=== PATIENT | female | born 1950 | race Caucasian/White ===

== ENCOUNTER 2016-03-28 16:07 | Inpatient (IN) | payer OTHER, MEDICARE ==
[~2016-03-28] VITALS: Ht 154.9 cm; Wt 64.6 kg
[~2016-03-28 16:07] MED LIST: ADVA250A INH; ALBU0.08 NEB; BLAC540C2 PO; CALC600T25; CHOL1TAB42; FOSA70TA PO; GABA100C4 PO; LOVA10TA PO; MONT10TA2 PO; PLAQ200T PO; VENTAER INH
[2016-03-31] MEDS ORDERED: FLUT1SPR9 EACH NARE (15:30)
[2016-04-03] MEDS ORDERED: HYDR-3288 PO (07:24)
[2016-04-03] MEDS ORDERED: ENOX30P SQ (07:25)
[2016-04-03] MEDS ORDERED: SODIUM CHLORIDE 0.9% FLUSH 5 ML FLUSH IVF PRN (07:30)
[2016-04-03] MEDS ORDERED: ACETAMINOPHEN/HYDROcodone 325 MG/7.5 MG TAB PO PRN (07:30)
[2016-04-03] MEDS ORDERED: NALOXONE HCL 0.4 MG/ML AMP IV PRN (07:30)
[2016-04-03] MEDS ORDERED: MAGNESIUM HYDROXIDE SUSP 30 ML CUP PO PRN ×2 (07:30→15:15)
[2016-04-03] MEDS ORDERED: MORPHINE SULFATE 4 MG/ML INJ IV PUSH PRN (07:30)
[2016-04-03] MEDS ORDERED: ZOLPIDEM TARTRATE 5 MG TAB PO PRN (07:30)
[2016-04-03] MEDS ORDERED: BISACODYL 10 MG SUPP PR PRN ×2 (07:30→15:15)
[2016-04-03] MEDS ORDERED: diphenhydrAMINE HCL 50 MG/ML VIAL IV PRN (07:30)
[2016-04-03] MEDS ORDERED: ONDANSETRON HCL 4 MG/2 ML VIAL IVP PRN (07:30)
[2016-04-03] MEDS ORDERED: ALUMINUM/MAGNESIUM/SIMETH 30 ML CUP PO PRN (07:30)
[2016-04-03] MEDS: LACTATED RINGER'S 1000 ML IV SCH (07:30)
[2016-04-03] MEDS ORDERED: Post-op Orders (for Pharmacy) MISC XX ONE (07:30)
[2016-04-03 07:33] VITALS: BP 139/66; PULSE 94; RESP 18; TEMP 98.6; O2SAT 96
[2016-04-03] MEDS: TRANEXAMIC ACID IV SCH ×2 (07:45→10:22)
[2016-04-03] MEDS ORDERED: METOPROLOL TARTRATE 25 MG TAB PO PRN (07:45)
[2016-04-03] MEDS: SODIUM CHLORID 0.9% 500 ML IV SCH ×2 (07:45→20:54)
[2016-04-03] MEDS ORDERED: EXPAREL PERI-ARTICULAR INJECTION (TOTAL VOL. 60 ML) P-ARTICULR SCH ×2 (07:45)
[2016-04-03] MEDS ORDERED: INSULIN HUMAN REGULAR 1,000 UNITS/10 ML VIAL SQ PRN (07:45)
[2016-04-03] MEDS: SODIUM CHLORIDE 0.9% IV SCH ×2 (07:45→10:22)
[2016-04-03] MEDS ORDERED: VANCOMYCIN 1000 MG/NS 250 ML (for <70 kg) IV SCH ×2 (07:45)
[2016-04-03] MEDS ORDERED: DEXAMETHASONE SOD PHOS 20 MG/5 ML VIAL IV ONE (07:45)
[2016-04-03] MEDS: POVIDONE IODINE 7.5% SCRUB 118 ML BOTTLE TOP SCH (07:45)
[2016-04-03] MEDS: ROPIVACAINE PERI-ARTICULAR INJECTION. PERIART SCH ×10 (07:45→11:21)
[2016-04-03] MEDS ORDERED: ceFAZolin 2 GM PREMIX 50 ML IV SCH (07:45)
[2016-04-03] MEDS: TRANEXAMIC PERI-ARTICULAR 3,000 MG/NS 100 ML P-ARTICULR SCH ×4 (07:45→11:21)
[2016-04-03] MEDS: CHLORHEXIDINE GLUCONATE 4% SOLN 120 ML BTL TOP SCH (07:45)
[2016-04-03] MEDS ORDERED: BUPIVACAINE HCL PF 0.5% 30 ML VIAL NB ONE (07:58)
[2016-04-03] MEDS: SODIUM CHLOR 0.9% 1000 ML INJ 1,000 ML IV SCH ×3 (08:00→20:58)
[2016-04-03] MEDS ORDERED: MIDAZOLAM HCL 5 MG/5 ML VIAL ONE (08:57)
[2016-04-03] MEDS: SODIUM CHLORIDE 0.9% FLUSH 5 ML FLUSH IVF SCH ×2 (09:00→20:56)
[2016-04-03] MEDS: HYDROXYCHLOROQUINE SULFATE 200 MG TAB PO SCH (09:00)
[2016-04-03] MEDS: GABAPENTIN 100 MG CAP PO SCH ×3 (09:00→17:31)
[2016-04-03] MEDS ORDERED: NON-FORMULARY DRUG (Fluticasone-Salmeterol Inh (Advair Diskus Inh) 1 PUFF) INH SCH (09:00)
[2016-04-03] MEDS ORDERED: FAMOTIDINE 20 MG/2 ML VIAL ONE (09:19)
[2016-04-03] MEDS ORDERED: MIDAZOLAM HCL 2 MG/2 ML VIAL ONE (09:19)
[2016-04-03] MEDS ORDERED: GENTAMICIN SULFATE 80 MG/2 ML VIAL ONE (09:29)
[2016-04-03] MEDS ORDERED: ONDANSETRON HCL 4 MG/2 ML VIAL IV PUSH ONE (11:33)
[2016-04-03] MEDS ORDERED: PROPOFOL 200 MG/20 ML AMP IV ONE (11:33)
[2016-04-03] MEDS ORDERED: PHENYLEPH/NS 1000 MCG/10 ML SYR IV ONE (11:33)
[2016-04-03] MEDS ORDERED: LACTATED RINGER'S 1000 ML INJ 1,000 ML IV ONE (11:33)
[2016-04-03] MEDS ORDERED: DO NOT ADM ANY ANTICOAGULANT DRUGS XX PRN (12:30)
--- NOTE | 2016-04-03 12:48 | RADRPT ---
EXAM DATE/TIME: 04/03/2016 12:11 [place] COMPARISON: No previous studies available for comparison. INDICATIONS : Post op right knee surgery MEDICAL HISTORY : None. SURGICAL HISTORY : None. ENCOUNTER: Initial ACUITY: 1 day PAIN SCORE: 0/10 LOCATION: Right knee FINDINGS: AP and lateral views of the knee following arthroplasty reveals a prosthesis in anatomic alignment. F racture is not appreciated. CONCLUSION: Status post total knee arthroplasty. James Gentile MD FACR Board Certified Radiologist. This report was verified electronically.
[2016-04-03 13:00] VITALS: BP 109/65; PULSE 93; RESP 18; TEMP 98; O2SAT 95
[2016-04-03] MEDS: ACETAMINOPHEN/HYDROcodone 325 MG/7.5 MG TAB PO PRN ×2 (13:44→17:31)
--- NOTE | 2016-04-03 15:08 | PD.CONS ---
HPI Service [facility] Hospitalists Consult Requested By Dr Frausto Reason for Consult medical management Primary Care Physician Sofi Vázquez DO Diagnoses: History of Present Illness 65 yo F with PMH of SLE taking plaquenil and following with endocrinology as OP , COPD, HLD came to ID for elective right knee surgery by Dr Frausto. Patient was seen after surgery. She is in nad, and eating. No n/v/d/c. No feevr or chills. No sob, wheezing, cp, palpitations. Review of Systems Other Reviewed, ROS. Negative ROS except mentioned in HPI Past Family Social History Allergies: Coded Allergies: Aspirin (Verified Allergy, Unknown, 04/03/16) Past Medical History SLE taking plaquenil and following with endocrinology as OP, COPD, HLD Past Surgical History Right shoulder sx x2 Meniscal repair left knee 2010 and right knee 2013 Bone spur surgery left shoulder Reported Medications Reported Meds & Active Scripts Active Lovenox Inj (Enoxaparin Sodium) 30 Mg/0.3 Ml Syr 30 Mg SQ DAILY Atkins (Hydrocodone-Acetaminophen) 7.5-325 mg Tab 1-2 Tab PO Q6H PRN Reported Flonase Allergy Relief Children Nasal [employer] [place] (Fluticasone Nasal [employer] [place]) 50 Mcg/ Act [employer] [place] 1 [employer] [place] EACH NARE DAILY 50 mcg/spray Plaquenil (Hydroxychloroquine Sulfate) 200 Mg Tab 200 Mg PO DAILY Take with food Black Cohosh (Black Cohosh Extract) 540 Mg Cap 540 Mg PO Calcium (Calcium Carbonate) 600 Mg Tab DAILY Vitamin D-3 (Cholecalciferol) 2,000 Unit Tab DAILY Fosamax (Alendronate Sodium) 70 Mg Tab 70 Mg PO Q7D Gabapentin 100 Mg Cap 100 Mg PO TID Lovastatin 10 Mg Tab 10 Mg PO HS Singulair (Montelukast Sodium) 10 Mg Tab 10 Mg PO HS Albuterol Neb (Albuterol Sulfate) 2.5 Mg/3 Ml Neb 2.5 Mg NEB TID NEB PRN Ventolin Hfa 18 GM Inh (Albuterol Sulfate) 90 Mcg/Act Aer 1 Puff INH Q4H PRN Advair Diskus Inh (Fluticasone-Salmeterol Inh) 250-50 Mcg/Blist Aer 1 Puff INH BID Rinse mouth after use. Family History Mother at 85 ya ?? liver CA Sister ot 23 ya, has grabd mal seizure and SLE Father at the age of 42, unknown cause Social History Denies smoking, EtOH use or illicit drug use Physical Exam Vital Signs Vital Signs Date Time Temp Pulse Resp B/P Pulse Ox O2 Delivery O2 Flow Rate FiO2 04/03/16 12:45 98.5 89 14 128/73 98 Nasal Cannula 2 04/03/16 12:30 94 14 121/84 98 Nasal Cannula 2 04/03/16 12:15 94 14 116/77 99 Nasal Cannula 2 04/03/16 12:00 96 14 110/79 99 Nasal Cannula 4 04/03/16 11:55 99.0 96 14 104/75 99 Nasal Cannula 4 04/03/16 07:33 98.6 94 18 139/66 96 Physical Exam GENERAL: This is a very pleasant 65 yo, well-nourished, well-developed patient, in no apparent distress. SKIN: No rashes, ecchymoses or lesions. Cool and dry. HEAD: Atraumatic. Normocephalic. No temporal or scalp tenderness. EYES: Pupils equal round and reactive. Extraocular motions intact. No scleral icterus. No injection or drainage. ENT: Nose without bleeding, purulent drainage or septal hematoma. Throat without erythema, tonsillar hypertrophy or exudate. Uvula midline. Airway patent. NECK: Trachea midline. No JVD or lymphadenopathy. Supple, nontender, no meningeal signs. CARDIOVASCULAR: Regular rate and rhythm without murmurs, gallops, or rubs. RESPIRATORY: Clear to auscultation. Breath sounds equal bilaterally. No wheezes , rales, or rhonchi. GASTROINTESTINAL: Abdomen soft, non-tender, nondistended. No hepato-splenomegaly , or palpable masses. No guarding. MUSCULOSKELETAL: Right leg s/p surgery. Extremities without clubbing, cyanosis, or edema. No joint tenderness, effusion, or edema noted. No calf tenderness. Negative Homans sign bilaterally. NEUROLOGICAL: Awake and alert. Cranial nerves II through XII intact. Motor and sensory grossly within normal limits. Five out of 5 muscle strength in all muscle groups. Normal speech. Laboratory Laboratory Tests Test 04/03/16 07:20 Blood Type O POSITIVE Antibody Screen NEGATIVE Blood Bank Comment Imaging Last Impressions Knee X-Ray 04/03/16 0703 Signed Impressions: Service Date/Time: Sunday, April 03, 2016 12:11 - CONCLUSION: Status post total knee arthroplasty. James Gentile MD Assessment and Plan Assessment and Plan Pleasant 65 yo F with PMH of SLE taking plaquenil and following with endocrinology as OP, COPD, HLD s/p right knee surgery by Dr Frausto OA S/P Right totak knee arthroplasty by Dr Frausto on 04/03/16 Management per ortho. Pain meds pe rpain scale Add laxatives/stool softeners DVT ppx per surgeon SLE taking plaquenil and following with endocrinology as OP, COPD, HLD. Stable at this time. Resume home meds. Monitor VS. DVT SCD/TEDs, chemical ppx per surgeon choice Code Status full Discussed Condition With patient, nurse Rosa Felder MD Apr 03, 2016 15:08
[2016-04-03] MEDS ORDERED: LACTULOSE SYRUP 20 GM/30 ML CUP PO PRN (15:15)
[2016-04-03 16:00] VITALS: BP 102/55; PULSE 82; RESP 18; TEMP 97; O2SAT 95
[2016-04-03 20:10] VITALS: BP 138/71; PULSE 85; RESP 16; TEMP 97.6; O2SAT 94
[2016-04-03] MEDS: BUDESONIDE-FORMOTEROL 160/4.5 MCG INHALER INH SCH (20:56)
[2016-04-03] MEDS: MONTELUKAST SODIUM 10 MG TAB PO SCH (20:56)
[2016-04-03 22:02] VITALS: O2SAT 97
[2016-04-04] VITALS (7 sets, daily range): BP systolic 90–120; BP diastolic 55–74; PULSE 80–90; RESP 16–18; TEMP 97.9–98.9; O2SAT 94–97
[2016-04-04 05:22] LABS: HEMATOCRIT 35.5 % (35.0-46.0); MEAN CELL VOLUME 92.6 FL (80.0-100.0); MEAN CORPUSCULAR HEMOGLOBIN 30.6 PG (27.0-34.0); PLATELET COUNT 157 TH/MM3 (150-450); RED BLOOD COUNT 3.83 MIL/MM3 (4.00-5.30); RED CELL DISTRIBUTION WIDTH 12.9 % (11.6-17.2); REVIEW FLAG FINAL; WHITE BLOOD COUNT 14.8 TH/MM3 (4.0-11.0)
[2016-04-04 05:41] LABS: BICARBONATE 27.4 MEQ/L (21.0-32.0); POTASSIUM 3.7 MEQ/L (3.5-5.1)
[2016-04-04] MEDS: POVIDONE IODINE 7.5% SCRUB 118 ML BOTTLE TOP SCH (07:38)
[2016-04-04] MEDS: CHLORHEXIDINE GLUCONATE 4% SOLN 120 ML BTL TOP SCH (07:38)
[2016-04-04] MEDS: LACTATED RINGER'S 1000 ML IV SCH (07:45)
--- NOTE | 2016-04-04 08:09 | PD.ORT.PN ---
Subjective Post Op Day #: 1 Subjective Remarks pain tolerable. Objective Vitals Vital Signs Date Time Temp Pulse Resp B/P Pulse Ox O2 Delivery O2 Flow Rate FiO2 04/04/16 08:05 98.9 89 18 117/67 95 04/04/16 04:25 98.7 80 17 107/56 95 04/04/16 00:07 97.9 85 17 107/55 96 04/03/16 22:02 97 Nasal Cannula 1.00 04/03/16 20:10 97.6 85 16 138/71 94 04/03/16 16:00 97.0 82 18 102/55 95 04/03/16 13:00 98.0 93 18 109/65 95 04/03/16 12:45 98.5 89 14 128/73 98 Nasal Cannula 2 04/03/16 12:30 94 14 121/84 98 Nasal Cannula 2 04/03/16 12:15 94 14 116/77 99 Nasal Cannula 2 04/03/16 12:00 96 14 110/79 99 Nasal Cannula 4 04/03/16 11:55 99.0 96 14 104/75 99 Nasal Cannula 4 I/O 04/03/16 04/03/16 04/03/16 04/04/16 04/04/16 04/04/16 07:00 15:00 23:00 07:00 15:00 23:00 Intake Total 1684 ml 607 ml 500 ml Output Total 1400 ml 200 ml 240 ml Balance 284 ml 407 ml 260 ml Intake Oral 360 ml 360 ml 240 ml IV Total 124 ml 247 ml 260 ml Other 1200 ml Output Urine Total 1350 ml 200 ml 240 ml Estimated Blood Loss 50 ml # Bowel Movements 0 0 0 Result Diagram: 04/04/1640904/04/160 Objective Remarks in bed, nad dressing c/d/i neg homans nvi Assessment & Plan Ortho Post Op Day #: 1 Problem List: Assessment and Plan s/p R TKA wbat daily dressing changes lovenox d/c planning home with hhc and pt rx in chart f/up dr. you 2 weeks Tong Gomes Apr 04, 2016 08:09
--- NOTE | 2016-04-04 08:11 | HHI.FF ---
Face to Face Verification Diagnosis: (1) Primary localized osteoarthrosis, lower leg Physical Therapy Gait training, Safety evaluation, Transfer training, bed to chair Knee: Total knee, Protocol: Right, Full weight bearing Right LE Weight Bearing: WB as tolerated Nursing RN: 3 days/week x 2 weeks Nursing: Dressing changes Dressing Changes: Daily dressing change I have seen patient Sandra Rodriguez on 04/04/16. My clinical findings support the need for the requested home health care services because: Limited ability to care for self High risk of falls I certify that my clinical findings support that this patient is homebound because: Post-op weakness Unsteady gait/balance Tong Gomes Apr 04, 2016 08:11
--- NOTE | 2016-04-04 08:11 | HHI.DCPOC ---
Discharge Care Plan Diagnosis: (1) Primary localized osteoarthrosis, lower leg Your Health Problems Are: Difficulty with ADL Goals to Promote Your Health * To prevent worsening of your condition and complications * To maintain your health at the optimal level Directions to Meet Your Goals Take your medications as prescribed Follow your dietary instruction Follow activity as directed Keep your appointments as scheduled Take your immunizations and boosters as scheduled If your symptoms worsen call your PCP, if no PCP go to Urgent Care Center or Emergency Room Smoking is Dangerous to Your Health. Avoid second hand smoke Call the 24-hour hour crisis hotline for domestic abuse at Tong Gomes Apr 04, 2016 08:11
[2016-04-04] MEDS ORDERED: WALKER WHEELS/F1 MIS (08:13)
[2016-04-04] MEDS ORDERED: MISC-163 (08:13)
[2016-04-04] MEDS ORDERED: CPMMACHINE (08:13)
[2016-04-04] MEDS: GABAPENTIN 100 MG CAP PO SCH ×3 (08:35→16:49)
[2016-04-04] MEDS: DOCUSATE SODIUM 50 MG/SENNA 8.6 MG TAB PO PRN (08:35)
[2016-04-04] MEDS: SODIUM CHLORIDE 0.9% FLUSH 5 ML FLUSH IVF SCH ×2 (08:35→20:10)
[2016-04-04] MEDS: ACETAMINOPHEN/HYDROcodone 325 MG/7.5 MG TAB PO PRN ×4 (08:36→23:54)
[2016-04-04] MEDS: HYDROXYCHLOROQUINE SULFATE 200 MG TAB PO SCH (08:38)
[2016-04-04] MEDS: BUDESONIDE-FORMOTEROL 160/4.5 MCG INHALER INH SCH ×2 (08:39→20:10)
--- NOTE | 2016-04-04 10:05 | HHI.PR ---
Addendum to Inpatient Note Addendum Reason: Additional Documentation Additional Information VSS leukocytosis 2/2 postsurgical stable medically. Hospitalist will sign off. thank you for tis consultation Rosa Felder MD Apr 04, 2016 10:05
[2016-04-04] MEDS ORDERED: ENOXAPARIN SODIUM 30 MG/0.3 ML SYRINGE SQ SCH (11:00)
[2016-04-04] MEDS: SODIUM CHLOR 0.9% 1000 ML INJ 1,000 ML IV SCH (13:07)
[2016-04-04] MEDS: MULTIVITAMINS/MINERALS THERAPEUTIC TAB PO SCH (20:11)
[2016-04-04] MEDS: MONTELUKAST SODIUM 10 MG TAB PO SCH (20:11)
[2016-04-04] MEDS: DOCUSATE SODIUM 100 MG CAP PO SCH (20:11)
[2016-04-05 00:09] VITALS: BP 118/69; PULSE 91; RESP 17; TEMP 98.9; O2SAT 92
[2016-04-05 04:09] VITALS: BP 118/55; PULSE 92; RESP 16; TEMP 98.1; O2SAT 93
[2016-04-05] MEDS: ACETAMINOPHEN/HYDROcodone 325 MG/7.5 MG TAB PO PRN ×2 (05:32→09:25)
[2016-04-05 06:44] LABS: HEMATOCRIT 29.6 % (35.0-46.0); MEAN CELL VOLUME 92.4 FL (80.0-100.0); MEAN CORPUSCULAR HEMOGLOBIN 31.5 PG (27.0-34.0); MEAN CORPUSCULAR HGB CONC 34.1 % (32.0-36.0); PLATELET COUNT 140 TH/MM3 (150-450); RED CELL DISTRIBUTION WIDTH 12.6 % (11.6-17.2); REVIEW FLAG FINAL; WHITE BLOOD COUNT 9.8 TH/MM3 (4.0-11.0)
[2016-04-05 07:07] LABS: BICARBONATE 27.9 MEQ/L (21.0-32.0); POTASSIUM 3.6 MEQ/L (3.5-5.1)
[2016-04-05] MEDS: CHLORHEXIDINE GLUCONATE 4% SOLN 120 ML BTL TOP SCH (07:45)
[2016-04-05] MEDS: LACTATED RINGER'S 1000 ML IV SCH (07:45)
[2016-04-05] MEDS: POVIDONE IODINE 7.5% SCRUB 118 ML BOTTLE TOP SCH (07:45)
[2016-04-05 08:00] VITALS: BP 98/53; PULSE 86; RESP 18; TEMP 98.9; O2SAT 93
--- NOTE | 2016-04-05 08:15 | PD.ORT.PN ---
Subjective Post Op Day #: 2 Subjective Remarks pain tolerable. feeling better. Objective Vitals Vital Signs Date Time Temp Pulse Resp B/P Pulse Ox O2 Delivery O2 Flow Rate FiO2 04/05/16 04:09 98.1 92 16 118/55 93 04/05/16 00:09 98.9 91 17 118/69 92 04/04/16 20:10 98.4 90 17 90/60 94 04/04/16 16:15 97.9 82 16 120/74 96 04/04/16 12:14 97.9 80 16 120/60 97 04/04/16 09:08 95 Nasal Cannula 1.00 I/O 04/04/16 04/04/16 04/04/16 04/05/16 04/05/16 04/05/16 07:00 15:00 23:00 07:00 15:00 23:00 Intake Total 500 ml 457 ml 360 ml Output Total 240 ml 50 ml Balance 260 ml 407 ml 360 ml Intake Oral 240 ml 240 ml 360 ml IV Total 260 ml 217 ml Output Urine Total 240 ml 50 ml # Voids 0 3 # Bowel Movements 0 0 0 Result Diagram: 04/05/16 0618 04/05/16 0618 Objective Remarks in chair, nad incision no erythema, no drainage neg homans nvi Assessment & Plan Ortho Post Op Day #: 2 Problem List: Assessment and Plan s/p R TKA wbat daily dressing changes lovenox d/c planning home with hhc and pt - cleared for d/c today rx in chart f/up dr. you 2 weeks Tong Gomes Apr 05, 2016 08:14
[2016-04-05] MEDS: SODIUM CHLOR 0.9% 1000 ML INJ 1,000 ML IV SCH ×2 (08:49)
[2016-04-05] MEDS: MULTIVITAMINS/MINERALS THERAPEUTIC TAB PO SCH (08:49)
[2016-04-05] MEDS: GABAPENTIN 100 MG CAP PO SCH (08:49)
[2016-04-05] MEDS: DOCUSATE SODIUM 100 MG CAP PO SCH (08:49)
[2016-04-05] MEDS: HYDROXYCHLOROQUINE SULFATE 200 MG TAB PO SCH (08:49)
[2016-04-05] MEDS: DOCUSATE SODIUM 50 MG/SENNA 8.6 MG TAB PO PRN (08:49)
[2016-04-05] MEDS: BUDESONIDE-FORMOTEROL 160/4.5 MCG INHALER INH SCH (08:50)
[2016-04-05] MEDS: SODIUM CHLORIDE 0.9% FLUSH 5 ML FLUSH IVF SCH (08:50)
[2016-04-05] MEDS ORDERED: ENOXAPARIN SODIUM 40 MG/0.4 ML SYRINGE SQ SCH (11:00)
--- NOTE | 2016-04-05 22:20 | MP ---
cc: CIERRA MCCABE DATE OF SURGERY 04/03/16 PREOPERATIVE DIAGNOSIS Right knee osteoarthritis POSTOPERATIVE DIAGNOSES Right knee osteoarthritis PROCEDURE Right total knee arthroplasty SURGEON Dr. Beverly Mccabe ROLLER SKATER BRUNA Ruvalcaba ANESTHESIA General with an adductor canal block. REVIEW OF SYSTEMS 50 mL COMPLICATIONS None. IMAGING STUDIES DePuy attune size three posterior stabilized femoral component, size three rotating platform tibia baseplate, size 35 mm patella, size 6 mm polyethylene tibial insert. DESCRIPTION OF PROCEDURE The patient is a 65-year female with a history of severe end-stage osteoarthritis involving the right knee. She has severe disabling pain with standing, walking ambulation, with activities and even severe pain at rest. She has failed greater than 3 months of nonoperative conservative treatment to include medication therapy, injections, ambulatory assistive aids, program, activity modification. The patient is not overweight. X-ray of the right knee reveals severe end-stage osteoarthritis with joint space narrowing, subchondral sclerosis, subchondral cyst osteophyte formation and varus deformity. The patient was counseled as to risks, benefits and alternatives to the above-named proposed surgical procedure. The risks with discussed to include but not limited to anesthesia, bleeding, infection, damage to nerves, blood vessels, pain, stiffness, , blood clots, pulmonary embolism, even . The patient's pain was severe. She favored the benefits over the risks and did wish to proceed with surgery. PROCEDURE IN DETAIL A written consent was obtained. The patient was identified by name, taken to operating room, placed supine on the operating room table. General anesthesia was administered as well as 2 grams of IV Ancef and 1 gram of IV vancomycin. A well-padded tourniquet was placed on the right thigh. The right lower extremity prepped and draped using as isopropyl alcohol, Hibiclens solution and Chloraprep solution. An Esmarch bandage was used to exsanguinate the right lower extremity. The tourniquet was inflated to 250 mmHg. A longitudinal incision was made over the anterior aspect of right knee. A medial parapatellar arthrotomy was performed. The patella was everted. Patellar resection guide was used to resect 7.5 mm of patella. The size 35 guide was placed. Three drill holes were placed and a 35 mm trial fit well. Attention was turned to the femur where an intramedullary guide was placed. The distal femoral guide was used to resect 9 mm of distal femur, 5 degrees off the anatomic valgus axis alignment. Attention was turned to the tibia where extramedullary tibial guide was placed and the stylus set on 5 mm off the lowest portion of the medial tibial plateau. The tibia guide was __ in place and tibia cut was performed. A 5 mm spacer block showed full extension. Attention was turned back to the femur where the AP sizing block measured a size three. The anterior for 3 degree external rotation guide was used to pin a size three block in place. The anterior, posterior and chamfer cuts were performed. A size three ___ was pinned in place. The PCL was boxed out with an oscillating saw. The medial lateral meniscus remnants were removed as well as bone and soft tissue posterior portion of the knee. A size three tibia baseplate was pinned in place. Tibia was drilled was evaluated and was cemented in place. With the 6-mm tibial insert, leg achieved full extension to 0 degrees and flexion to 140. No evidence of tibial lift-off. Varus-valgus balance appeared appropriate and symmetric. The patella was noted to track centrally. The tourniquet was deflated. Bovie cautery was used for hemostasis. The arthrotomy incision was closed with #1 Vicryl suture. Subcutaneous layer with 2-0 Vicryl suture. Skin was closed with Dermabond. Sterile dressing applied. The patient tolerated procedure well with no intraoperative complications noted. Isaiah Gomes physician cardiovascular physician assistant certified was present during entire procedure to include patient positioning and the procedure itself. The medical necessity of the physician cardiovascular physician assistant was indicated in this case due to the complexity of the procedure. He assisted with appropriate manipulation of the leg and also retraction of muscle, tendon, bone, neurovascular structure. He assisted with both bone resection and implantation of the prosthetic replacement. MD LENNIE Lerma/ /11:42 AM /10:03 PM
--- NOTE | 2016-04-12 23:15 | MD ---
cc: CIERRA FRAUSTO ADMISSION DATE: 04/03/2016 DISCHARGE DATE: 04/05/2016 ADMISSION DIAGNOSIS Severe degenerative osteoarthritis right knee DISCHARGE DIAGNOSIS Severe degenerative osteoarthritis right knee HISTORY OF PRESENT ILLNESS Mrs. Rodriguez is a 65-year-old female who presented to [facility] for evaluation by Dr. Cierra Frausto regarding her severe and progressive right knee pain. The patient states the pain has been bothering her for several years and she has been treated for this ailment for greater than 6 months duration. She states the pain is a constant severe aching sensation that is exacerbated by weightbearing activities. She has no significant alleviating factors at this point in time. She notes in the past she has tried medications, bracing, assistive devices, physical therapy and even corticosteroid injections without significant relief of symptoms. PAST MEDICAL HISTORY: The patient's past history is significant for lupus for which she takes plaquinel. The patient does have x-ray evidence of severe degenerative osteoarthritis of the right knee. While in the office the patient was counseled on her diagnosis and treatment options. Risks, benefits, indications were discussed. The patient did elect proceed with surgical intervention to include a right total knee arthroplasty. Date of surgery: 04/03/2016. Procedure: Right total knee arthroplasty. Postop: After surgery the patient was admitted to [facility] where she received appropriate medical management, pain control, DVT prophylaxis as well as physical therapy. The patient was started on Lovenox for DVT prophylaxis as she has an allergies to aspirin. Discharge: Once being discharged from the hospital the patient is cleared to go home where she will receive home health care and home physical therapy. She is in stable condition. She can weightbear as tolerated. The patient is to receive daily dressing changes and has been instructed on appropriate wound care management. Patient has been provided prescriptions for pain control as well as DVT prophylaxis medication. She has also been provided a follow-up appointment see Dr. Cierra Frausto in the office in approximately 2 weeks from her date of surgery. The patient and the patient's have asked appropriate questions which have all been answered. Dictated by: BRUNA Harvey MD LENNIE Lerma/JACOBY /8:18 AM 11:04 PM
== END 2016-04-05 10:56 | disposition home health service (06) | DRG 470 ==
LOC: HSDI 04-03 06:44 → N06B 04-03 13:29
PROVIDERS: ADMIT Orthopaedic Surgery Sports Medicine; ATTEND Orthopaedic Surgery Sports Medicine
PROC: 3E0T3CZ (ICD-10-PCS; 2016-04-03)
PROC: 0SRC0J9 Replacement of Right Knee Joint with Synthetic Substitute, Cemented, Open Approach (ICD-10-PCS; principal; 2016-04-03 09:57)
DX: M17.11 Unilateral primary osteoarthritis, right knee (principal); M32.9 Systemic lupus erythematosus, unspecified; J44.9 Chronic obstructive pulmonary disease, unspecified; E78.5 Hyperlipidemia, unspecified; D72.829 Elevated white blood cell count, unspecified
CPT/HCPCS: 73560; 80048; 85027; 86850; 86900; 86901; 94150; C1776; J0171; J0690; J0735; J1100; J1580; J1650; J1885; J2250; J2370; J2405; J2795; J3010; J3370; J7030; J7050; J7120; L1830